=== PATIENT | female | born 1955 | race American Indian/Alaskan Native ===

== ENCOUNTER 2024-12-11 16:12 | Emergency (ER) | payer MEDICARE, MEDICAID, SELFPAY ==
[2024-12-11 16:27] VITALS: BP 160/71; PULSE 61; RESP 18; TEMP 36.9; O2SAT 97
--- NOTE | 2024-12-11 16:39 | XR_ITS ---
Examination: Hand, left 3 views Technique: Hand AP, oblique, lateral 3 views Date and time of exam: December 11, 2024, 1646 hrs. Indications: Ground-level fall today with injury to the hand, hand pain Findings: No acute fracture No dislocation No foreign body Impression: No acute fracture There is old appearing deformity of the middle phalanx fifth digit, clinical correlation advised
--- NOTE | 2024-12-11 16:39 | XR_ITS ---
Examination: Wrist, left 3 views Technique: Wrist AP, oblique, lateral 3 views Date and time of exam: December 11, 2024, 1646 hrs. Indications: Ground-level fall today with injury of the wrist, wrist pain Findings: No acute fracture. No dislocation No foreign body Impression: No acute fracture
--- NOTE | 2024-12-11 16:39 | XR_ITS ---
Examination: Knee, left , 3 views Technique: Knee AP, lateral, oblique 3 views Date and time of exam: December 11, 2024, 1646 hrs. Indications: Ground-level fall today with into the knee, knee pain. Findings: Advanced tricompartment osteoarthritis No fracture or dislocation. Prepatellar soft tissue prominence Impression: No acute fracture Prominent soft tissue swelling prepatellar
[2024-12-11] MEDS: DIPHTH,PERTUSS(ACELL),TET VAC 0.5 ML SYR- ADULT IMi (17:15)
[2024-12-11] MEDS: LIDOCAINE HCL 1% 20 ML VIAL INFL (17:15)
--- NOTE | 2024-12-11 17:40 | PD.EDFALL ---
ED Fall Injury RME/HPI General Chief Complaint: Fall Stated Complaint: FALL, L KNEE & HAND, HEAD INJURY Time Seen by Provider: 12/11/24 16:39 Arrival date/time: 12/11/24 16:12 69-year-old female presents to the emergency room today saying that she tripped over carpet injuring her left knee and hand patient reports she hit her head with small laceration to the forehead. Patient reports no loss of conscious no vomiting no headache no dizziness no weakness no neck pain Limitations: no limitations Related Data Home Medications ?Medication ?Instructions ?Recorded ?Confirmed lisinopril 20 mg tablet 20 mg PO QDAY 06/15/19 07/23/19 acetaminophen 325 mg tablet 325 mg PO Q4H PRN Pain 07/23/19 07/23/19 (Tylenol) ibuprofen 800 mg tablet 800 mg PO QID PRN Pain 07/23/19 07/23/19 Previous Rx's ?Medication ?Instructions ?Recorded hydrocodone 5 mg-acetaminophen 325 1 tab PO Q6H PRN pain #14 tabs 06/15/19 mg tablet ([place]) ketorolac 10 mg tablet 10 mg PO Q6H #20 tabs 07/24/19 acetaminophen 500 mg tablet 500 mg PO QID PRN fever or pain 10/15/19 (Tylenol Extra Strength) #30 tabs albuterol sulfate 90 mcg/actuation 2 puff inhalation QID #18 grams 10/15/19 aerosol inhaler azithromycin 250 mg tablet See Rx Instructions PO .COMPLEX #6 10/15/19 tabs Allergies Allergy/AdvReac Type Severity Reaction Status Date / Time No Known Allergies Allergy Verified 12/11/24 16:15 Review of Systems Review of Systems Systems Reviewed: All systems reviewed, normal except as documented Constitutional Constitutional: Reports system reviewed and no additional complaints, except as documented, Denies fever(s) and Denies headache(s) Eyes Eyes: Reports system reviewed and no additional complaints, except as documented and Denies blurry vision ENT Ears, Nose, Mouth, and Throat: Reports system reviewed and no additional complaints, except as documented, Denies headache(s), Denies nasal congestion and Denies nasal discharge Cardiovascular Cardiovascular: Reports system reviewed and no additional complaints, except as documented, Denies chest pain and Denies dyspnea Respiratory Respiratory: Reports system reviewed and no additional complaints, except as documented, Denies chest congestion, Denies cough and Denies dyspnea Gastrointestinal Gastrointestinal: Reports system reviewed and no additional complaints, except as documented and Denies abdominal pain Musculoskeletal Musculoskeletal: Reports system reviewed and no additional complaints, except as documented, Reports abnormal gait, Reports arthralgias (Pain left knee), Denies deformity, Reports joint swelling (Left knee), Denies numbness, Reports stiffness and Denies tingling Integumentary/Breasts Skin/Breast: Reports system reviewed and no additional complaints, except as documented, Denies rash and Reports wounds (Laceration facial) Neurologic Neurologic: Reports system reviewed and no additional complaints, except as documented, Reports as per HPI, Reports abnormal gait, Denies headache(s), Denies numbness and Denies tingling Past Medical History Past Medical History NEUROLOGIC: Negative Neurological Disorders or Seizures CARDIAC: Positive Hypertension; Negative Cardiac Disorders or Congestive Heart Failure RESPIRATORY: Negative Chronic Obstructive Pulmonary Disease (COPD) or Asthma GASTROINTESTINAL: Positive Gastrointestinal Disorders, Diverticulitis and Obesity GENITOURINARY: Negative Renal Disease REPRODUCTIVE: Positive Previous Pregnancies MUSCULOSKELETAL: Negative Musculoskeletal Disorders ENDOCRINE: Negative Endocrine Disorders, Diabetes Mellitus Type 1 or Diabetes Mellitus Type 2 HEMATOLOGIC: Negative Blood Disorders or Sickle Cell Disease PSYCHO/SOCIAL: Positive Anxiety OTHER HISTORY: Positive Hospitalization and Cancer; Negative Blood Transfusions, Blood Transfusion Reaction or Anesthesia Reactions Surgical History SURGICAL: Positive Abdominal Surgery, Hysterectomy and Tubal Ligation Social History SMOKING STATUS: Never smoker SECOND HAND EXPOSURE: No SUBSTANCE USE: does not use ED Exam General Limitations: Present no limitations General appearance: Present alert and in no apparent distress Expanded Head Exam Head image:  1. 3 cm laceration forehead Eye Eye exam: Present normal appearance, PERRL and EOMI; Absent conjunctival injection ENT ENT exam: Present normal exam, normal oropharynx and mucous membranes moist Neck Neck exam: Present normal inspection, full ROM and trachea midline Chest Chest inspection: Present normal inspection and symmetric chest wall rise Respiratory Respiratory exam: Present normal lung sounds bilaterally Cardiovascular Cardiovascular exam: Present regular rate, normal rhythm and normal heart sounds Abdominal Exam Abdominal exam: Present soft and normal bowel sounds; Absent distention, tenderness, guarding, rebound or rigidity Extremities Exam Extremities exam: Present normal inspection and full ROM Back Exam Back exam: Present normal inspection and full ROM Neurological Exam Neurological exam: Present alert, oriented X3 and CN II-XII intact Psychiatric Psychiatric exam: Present normal affect and normal mood Skin Skin exam: Present warm, dry, intact and normal color Course Quality Measures none Orders Category Date Time Status Set Up Suture Tray STAT Care 12/11/24 16:39 Completed Wound Care NOW Care 12/11/24 16:39 Completed XR hand comp LT min 3V Stat Exams 12/11/24 16:39 Completed XR knee LT 3V Stat Exams 12/11/24 16:39 Completed XR wrist comp LT min 3V Stat Exams 12/11/24 16:39 Completed Lidocaine 1% 20 ml [Xylocaine 1% 20 ML] Med 12/11/24 16:39 Discontinued 20 ml INFL X1 ONE TET,DIP/PERT AC (Adult)-Tdap [Boostrix Adult (Tdap) Med 12/11/24 16:39 Discontinued Vacc] 0.5 ml IMI .ONCE ONE Vital Signs Vital signs: Vital Signs Temperature 98.4 F 12/11/24 16:27 Pulse Rate 61 12/11/24 16:27 Respiratory Rate 18 12/11/24 16:27 Blood Pressure 160/71 H 12/11/24 16:27 Pulse Oximetry (%) 97 12/11/24 16:27 Oxygen Delivery Method Room Air 12/11/24 16:27 O2 saturation 97% room air WNL PROCEDURES: Laceration Laceration 1: Site: face Size (cm): 3 Description: linear Depth: simple, single layer Local Anesthetic: lidocaine 1% Amount of anesthesia used (mL): 5 Pre-repair: wound explored and irrigated extensively Skin layer closed with: nylon Suture size (cm): 5-0 Number of sutures: 6 Technique: simple, interrupted Fall MDM Narrative MDM Narrative:: 69-year-old female presents to the emergency room today saying that she tripped over carpet injuring her left knee and hand patient reports she hit her head with small laceration to the forehead. Patient reports no loss of conscious no vomiting no headache no dizziness no weakness no neck pain On exam patient well-appearing patient does not appear toxic in no acute distress Patient does have mild pain to the left knee mild swelling Wrist and hand appear well no bruising or swelling noted Laceration. Wounds well-approximated no active bleeding time of discharge Time reevaluation patient well-appearing Patient data External records reviewed:: [facility] previous records Clinical information provided by:: patient Social determinants that could affect healthcare access:: none Patient has the following chronic illnesses:: See history How is presenting disease/condition affected by chronic disease/condition?: uneffected by Evaluation data The following diagnostics were reviewed and interpreted by me:: radiology exam(s) Lab and/or radiology exams considered but not ordered:: Radiology obtain Interpretation Summary: N/A Medications / Prescriptions Medications or Prescriptions considered but not ordered:: Given Medication administrations:: Medication Administration History Discontinued Medications Diphtheria/Tetanus/Acell Pertussis (Diphth,Pertuss(Acell),Tet Vac 0.5 Ml Syr- Adult) 0.5 ml IMi .ONCE ONE Stop: 12/11/24 16:40 Last Admin: 12/11/24 17:15 Dose: 0.5 ml Documented By: SUSSY Lidocaine HCl (Lidocaine Hcl 1% 20 Ml Vial) 20 ml INFL X1 ONE Stop: 12/11/24 16:40 Last Admin: 12/11/24 17:15 Dose: 20 ml Documented By: SUSSY Comments: USED BY PROVIDER Given Consultations Consultation(s) initiated? (list below): No Diagnosis Fall Differential Diagnosis: syncope, dislocation of shoulder region and concussion without loss of consciousness Most likely diagnosis given after review of the tests above:: Closed head injury, knee injury Admission Indicated Admission indicated?: not indicated Admission Request Was there a request for admission?: No Disposition Plan Disposition Plan: Discharge Discharge Attestation Discharge Attestation: The patient and all family members were given an opportunity to ask questions and understood the discharge instructions. Discharge instructions specifically effects, indications for sooner follow up or return to the emergency department, and the expected course of current diagnosis. Patient condition: Stable Discharge Plan Plan Patient Disposition: HOME (Self Care) Discharge Disposition comment: Stable Prescriptions/Referrals Prescriptions/Med Rec: No Action lisinopril 20 mg Tablet 20 mg PO QDAY hydrocodone-acetaminophen [[place]] 5-325 mg tablet 1 tab PO Q6H MDD 1 tab every 6 hours PRN (Reason: pain) Qty: 14 0RF acetaminophen [Tylenol] 325 mg Tablet 325 mg PO Q4H PRN (Reason: Pain) ibuprofen 800 mg Tablet 800 mg PO QID PRN (Reason: Pain) ketorolac 10 mg tablet 10 mg PO Q6H MDD 4 Qty: 20 0RF azithromycin 250 mg tablet See Rx Instructions .ROUTE .COMPLEX Qty: 6 0RF Rx Instructions: take 500 mg today (day 1), then 250 mg for 4 days (days 2-5) albuterol sulfate 90 mcg/actuation HFA aerosol inhaler 2 puff IH QID Qty: 18 0RF acetaminophen [Tylenol Extra Strength] 500 mg tablet 500 mg PO QID PRN (Reason: fever or pain) Qty: 30 0RF Referrals: Amy Alonso, [employer] [Primary Care Provider] - In 1 week Problem List Clinical Impression: Facial laceration, Contusion of knee, left, Osteoarthritis of left knee Patient/Caregiver Discharge Instructions Education Materials: ED Head Injury (Adult) Additional Instructions: Please follow up with your primary care doctor in the next 24-48hrs for any worsening symptoms return here immediately Please have sutures removed in 7 days Print Language: Arabic Stand Alone Forms: [employer] Award Info., Patient Portal Info Letter Vaccines Vaccines Given During Stay: TDaP PA/[employer] Supervising Physician BEKAH/[employer] Supervising Physician: Dr. Duarte
== END 2024-12-11 18:14 | disposition home or self-care (01) ==
PROVIDERS: Emergency Provider Family Medicine; PCP Registered Nurse Community Health
DX: S01.81XA Laceration without foreign body of other part of head, initial encounter (principal); S80.02XA Contusion of left knee, initial encounter; M17.12 Unilateral primary osteoarthritis, left knee; S69.92XA Unspecified injury of left wrist, hand and finger(s), initial encounter; W01.0XXA Fall on same level from slipping, tripping and stumbling without subsequent striking against object, initial encounter; Z23 Encounter for immunization
CPT/HCPCS: 12013; 73110; 73130; 73562; 90471; 90715; 99284; J3490